=== PATIENT | female | born 1940 | race Caucasian/White ===

== ENCOUNTER → 2016-09-29 | Outpatient (CLI) | payer MEDICARE, OTHER | LOC: US 13:13 | DX: R10.9 Unspecified abdominal pain (principal); N28.81 Hypertrophy of kidney; N26.1 Atrophy of kidney (terminal) | CPT/HCPCS: 76775 ==

== ENCOUNTER 2020-08-07 15:11 | Emergency (ER) | payer MEDICARE, OTHER ==
[~2020-08-07 15:11] MED LIST: CEFUROXIME250 MG PO; COQ-10100 MG PO; DULERA 100 MCG8.8 GM INH; FLUZONE QU60 MCG/015 IM; HYDROCHLOROTHIA25 MG PO; INDOCIN CAP 2525 MG PO; MEGA BIOTIN10000 MCG PO; MICARDIS40 MG PO; PANTOPRAZOLE SO40 MG PO; SYNTHROID 25 M25 MCG PO; TOPROL XL25 MG PO; VALSARTAN80 MG PO
[2020-08-07] MEDS ORDERED: HYDROCHLOROTHIA25 MG PO (16:42)
== END 2020-08-07 15:41 | disposition home or self-care (01) ==
LOC: ER1 15:11
DX: I10 Essential (primary) hypertension (principal)
CPT/HCPCS: 93005; 96374; 96375; 99284; J1200; J1885; J2405

== ENCOUNTER → 2020-12-29 | Outpatient (CLI) | payer MEDICARE, OTHER ==
[2020-12-31 17:12] LABS: ENDOMYSIAL ANTIBODY IGA Negative (Negative); IMMUNOGLOBULIN A, QN, SERUM 123 mg/dL (64-422); T-TRANSGLUTAMINASE (TTG) IGA <2 U/mL (0-3)
== END ==
LOC: LAB 15:12
PROVIDERS: Internal Medicine Gastroenterology
DX: R19.5 Other fecal abnormalities (principal)
CPT/HCPCS: 82784

== ENCOUNTER 2021-07-06 16:52 | Emergency (ER) | payer MEDICARE, OTHER ==
[2021-07-06 19:52] LABS: HEMOGLOBIN 11.3 gm/dl (12.3-15.3); RED BLOOD COUNT 3.74 M/UL (4.00-5.10); WHITE BLOOD COUNT 6.6 K/UL (4.5-11.0)
[2021-07-06 20:16] LABS: BUN/CREATININE RATIO 21 (0-10)
[2021-07-07] MEDS ORDERED: CATAPRES 0.1MG0.1 MG PO (01:07)
== END 2021-07-07 01:25 | disposition home or self-care (01) ==
LOC: ER1 16:52
PROVIDERS: Physician Assistant
DX: I10 Essential (primary) hypertension (principal)
CPT/HCPCS: 70450; 71045; 80053; 82550; 82553; 83874; 83880; 84484; 85025; 93005; 99284